=== PATIENT | female | born 1980 | race American Indian/Alaskan Native ===

== ENCOUNTER 2016-10-17 22:11 | Emergency (ER) | payer SELFPAY ==
[2016-10-17 23:39] LABS: Basophils % (Auto) 0.7 % (0.0-1.8); Eosinophils % (Auto) 1.3 % (0.0-4.3); Hematocrit 28.5 % (30.3-42.9); Hemoglobin 9.3 gm/dl (10.1-14.3); Mean Corpuscular HGB Conc 33 % (30-34); Mean Corpuscular Hemoglobin 29 pg (28-32); Mean Corpuscular Volume 88 fl (79-97); Platelet Count 608 K/mm3 (140-440); Red Blood Count 3.26 M/mm3 (3.65-5.03); Red Cell Distribution Width 15.6 % (13.2-15.2); White Blood Count 6.4 K/mm3 (4.5-11.0)
[2016-10-17 23:48] LABS: Alanine Aminotransferase 10 units/L (7-56); Albumin 4.1 g/dL (3.9-5); Albumin/Globulin Ratio 1.6 %; Alkaline Phosphatase 59 units/L (35-129); Bilirubin,Total 0.2 mg/dL (0.1-1.2); Blood Urea Nitrogen 14 mg/dL (7-17); Calcium 8.4 mg/dL (8.4-10.2); Carbon Dioxide 24 mmol/L (22-30); Chloride 104.7 mmol/L (98-107); Glucose 97 mg/dL (65-100); Lipase 110 units/L (13-60); Potassium 3.5 mmol/L (3.6-5.0); Sodium 140 mmol/L (137-145); Total Protein 6.6 g/dL (6.3-8.2)
[2016-10-17 23:50] LABS: Bacteria,Urine 1+ /HPF (Negative); Bilirubin,Urine NEG (Negative); Blood,Urine NEG (Negative); Ketones,Urine 20 mg/dL (Negative); Leukocyte Esterase,Urine NEG (Negative); Mucus,Urine 3+ /HPF; Nitrite,Urine NEG (Negative); Protein,Urine <15 mg/dL mg/dL (Negative); Urobilinogen,Urine < 2.0 mg/dL (<2.0)
[2016-10-17 23:56] LABS: Anion Gap 15 mmol/L
[2016-10-18] MEDS ORDERED: MORPHINE IV ONE (06:04)
[2016-10-18] MEDS ORDERED: NACL 0.9% 1000 ML IV ONE (06:04)
[2016-10-18] MEDS ORDERED: ZOFRAN IV ONE (06:04)
--- NOTE | 2016-10-18 06:06 | Emergency Department Report ---
HPI - General Chief Complaint: Abdominal Pain Time Seen by Provider: 10/18/16 05:59 - HPI HPI: Chief complaint: Abdominal pain nausea and vomiting HPI: Patient with a history of alcoholic pancreatitis who states she hasn't had anything alcoholic drink in over 4 years complains of upper abdominal pain nausea and vomiting radiating to her back since Saturday. Patient states she is unable to keep anything down. Mode of arrival: [private car] Source: [Patient] Began: Saturday Duration:5 days Context: see above Quality: sharp Severity: 9 out of 10 Improved with: nothing Worsened with: eating or drinking Associated signs and symptoms: Patient complains of nausea vomiting and diarrhea at least 3 times a day Saturday. She denies fever, cough, cold, chest pain. Patient states the pain radiates into her flank. ED Past Medical Hx - Past Medical History Previous Medical History?: Yes Additional medical history: pancreatitis, anemia - Surgical History Past Surgical History?: No - Social History Smoking Status: Current Every Day Smoker - Medications Home Medications: Home Medications Medication Instructions Recorded Confirmed Last Taken Type HYDROcodone/APAP 7.5-325 [[place] 1 each PO Q6HR PRN #14 tablet 10/18/16 Unknown Rx 7.5/325] Promethazine [Phenergan TAB] 25 mg PO Q6HR PRN #20 tab 10/18/16 Unknown Rx ED Review of Systems ROS: Stated complaint: ABD/DIARRHEA Other details as noted in HPI ROS Constitutional: No fever ENT: No uri symptoms Cardiovascular: No chest pain Respiratory: No sob or cough GI: See HPI : No dysuria frequency or urgency, Skin: No rash Neuro: No focal weakness or numbness Psych: No depression Pedrito/lymph: No edema Physical Exam - Physical Exam Vital Signs: Vital Signs 10/17/16 10/18/16 22:32 02:14 Temperature 98.6 F 98.1 F Pulse Rate 84 93 H Respiratory 18 20 Rate Blood Pressure 108/71 Blood Pressure 99/64 [Left] O2 Sat by Pulse 100 100 Oximetry Physical Exam: GENERAL: The patient is well-developed well-nourished. HEENT: Normocephalic. Atraumatic. Extraocular motions are intact. Patient has moist mucous membranes. NECK: Supple. No meningitic signs are noted. There is no adenopathy noted. CHEST/LUNGS: Clear to auscultation. There is no respiratory distress noted. HEART/CARDIOVASCULAR: Regular. There is no tachycardia. There is no gallop rub or murmur. ABDOMEN: Abdomen is soft, upper abdominal tenderness without guarding or rebound. Patient has normal bowel sounds. There is no abdominal distention. SKIN: There is no rash. There is no edema. There is no diaphoresis. NEURO: The patient is awake, alert, and oriented. The patient is cooperative. The patient has no focal neurologic deficits. The patient has normal speech. MUSCULOSKELETAL: There is no tenderness or deformity. There is no limitation range of motion. There is no evidence of acute injury. ED Course Vital Signs 10/17/16 10/18/16 22:32 02:14 Temperature 98.6 F 98.1 F Pulse Rate 84 93 H Respiratory 18 20 Rate Blood Pressure 108/71 Blood Pressure 99/64 [Left] O2 Sat by Pulse 100 100 Oximetry - Reevaluation(s) Reevaluation #1: 10/18/16 06:13 Patient given a liter of normal saline, 4 mg of IV morphine and 4 mg of IV Zofran and ultrasound and CT of the abdomen to be performed. Reevaluation #2: 10/18/16 08:36 Patient improved with medication and wishes to go home with pain medicine and nausea medicine. Patient will be given [place] and Phenergan and advised to return if she worsens. While in CAT scan in the middle of receiving her injection of IV dye patient's IV infiltrated. technical photographer states she immediately stopped the dye infusion. Patient's left arm is slightly swollen and warm compresses were placed. ED Medical Decision Making - Lab Data Result diagrams: 10/17/16 23:12 10/17/16 23:12 Laboratory Tests 10/17/16 10/17/16 22:43 23:12 Lipase 110 H Urine HCG, Qual Negative Urinalysis is negative. - Radiology Data Radiology results: report reviewed (CT abdomen is negative except for a left ovarian cyst and ultrasound of the abdomen is negative.) Critical care attestation.: If time is entered above; I have spent that time in minutes in the direct care of this critically ill patient, excluding procedure time. ED Disposition Clinical Impression: Recurrent pancreatitis Disposition: DISCHARGED TO HOME OR SELFCARE Is pt being admited?: No Does the pt Need Aspirin: No Condition: Stable Instructions: Pancreatitis (ED), Ovarian Cyst (ED) Additional Instructions: Warm compresses to left arm 3 or 4 times a day and return to the emergency department if worsens. Prescriptions: HYDROcodone/APAP 7.5-325 [[place] 7.5/325] 1 each PO Q6HR PRN #14 tablet PRN Reason: Pain Promethazine [Phenergan TAB] 25 mg PO Q6HR PRN #20 tab PRN Reason: Nausea Referrals: [facility] [Provider Group] - 3-5 Days [facility] [Provider Group] - as needed Time of Disposition: 08:36
[2016-10-18] MEDS ORDERED: NACL ONE (06:07)
--- NOTE | 2016-10-18 06:59 | Cat Scan Report ---
FINAL REPORT EXAM: CT ABDOMEN PELVIS W CON HISTORY: abdominal pain TECHNIQUE: CT abdomen and pelvis with IV contrast. Multiplanar reformations. PRIORS: None FINDINGS: Lung bases show no significant abnormality. No free intraperitoneal gas seen. Images were obtained after significant delay. Liver shows no significant abnormality. Normal biliary tree. Spleen shows no significant abnormality. Kidneys show no significant abnormality. Adrenal glands show no significant abnormality. Pancreas shows no significant abnormality. Abdominal aorta is non-aneurysmal. Normal-appearing appendix. No right lower quadrant inflammatory changes. Left ovarian cyst measures 2.9 x 2.6 cm. Moderate free fluid in the pelvis. Grossly normal right ovary. No bowel obstruction identified. No ureteral calculus seen on either side. IMPRESSION: 1. Left ovarian cyst, follow-up ultrasound recommended.
--- NOTE | 2016-10-18 07:24 | Ultrasound Report ---
RIGHT UPPER QUADRANT ULTRASOUND: HISTORY: Right upper quadrant abdominal pain, epigastric pain, pancreatitis. Technique: Transabdominal ultrasound imaging with Doppler interrogation. FINDINGS: The gallbladder is contracted but no evidence for gallstones, sludge or inflammation. The CBD measures 3 mm. Images of the liver parenchyma, pancreas, right kidney and aorta are within normal limits. No perihepatic ascites. IMPRESSION: Unremarkable right upper quadrant ultrasound.
[2016-10-18 08:55] VITALS: BP 101/69
== END 2016-10-18 08:57 | disposition home or self-care (01) ==
LOC: ED 22:11
DX: K86.1 Other chronic pancreatitis (principal); F17.200 Nicotine dependence, unspecified, uncomplicated
CPT/HCPCS: 36415; 74177; 76705; 80053; 81001; 81025; 83690; 85025; 96361; 96374; 96375; 99284; J2270; J2405; J7030; Q9967